=== PATIENT | female | born 1965 | race Caucasian/White ===

== ENCOUNTER 2024-06-21 21:58 | Emergency (ER) | payer SELFPAY ==
--- NOTE | 2024-06-21 22:02 | ED.GENADUL_ITS ---
Discharge Plan Disposition Patient Disposition: [facility] Condition: Stable Discharge Details Clinical Impression: Encounter for medical clearance for patient hold, Alcohol intoxication ED Provider: Manolo Valencia Discharge Instructions Additional Instructions: You were seen in the emergency department for clearance after being taken into protective custody by state police. You will be released from protective custody once you are sober. Follow-up with primary care as needed. Return to ED with any concerns. HPI General Mode of arrival: ambulatory . Date/Time Provider Initiated Documentation: 06/21/24 22:02 . Limitations to Documentation: no limitations . Information obtained by: patient, police and RN notes reviewed . HPI Narrative: Patient is brought to ED by state police for medical clearance after being taken into protective custody. Patient has no physical complaints at this time. She is awake and alert and cooperative. Denies any injury, fever, cough, chest pain, abdominal pain. Takes gabapentin and PPI as daily medications. Related Data Allergies Allergy/AdvReac Type Severity Reaction Status Date / Time Penicillins Allergy Unknown Contraindic Verified 06/21/24 22:15 ated Exam Narrative Exam Narrative: Const: WDWN female in NAD. VS per triage. HEENT: NC/AT. Normal facial exam. Neck: Supple. Trachea midline. Lungs: Normal respiratory effort. Lungs are clear. Cor: RRR without murmur. Good radial pulses. Neuro: A+O x 3. Normal speech. Cranial nerves II - XII grossly intact. No gross motor or sensory deficit. Medical Decision Making Patient has been taken into protective custody by [employer] police. She is brought to the ED for clearance. She has no physical complaints. Police had offered to call family for her, she apparently declined. She has no acute emergent condition and is cleared to be brought to detox until sober at which time she will be discharged from protective custody. [facility] All Active Problems Alcohol intoxication (Acute) Encounter for medical clearance for patient hold (Acute) Medical History GERD (gastroesophageal reflux disease) Surgical History S/P shoulder surgery bilateral Status post THR (total hip replacement) Social History Smoking/Tobacco Use Status: Current every day Tobacco Type: cigarettes Smoking risk assessment performed?: Yes Alcohol Intake: current Alcohol Intake frequency: 3 or more drinks per day Alcohol type: hard liquor Housing: apartment Do you feel safe at home: Yes Do you feel safe in your relationship?: Yes
[2024-06-21 22:08] VITALS: BP 154/90; PULSE 76; RESP 18; TEMP 36.2; O2SAT 100
[2024-06-21 22:11] VITALS: RESP 16
== END 2024-06-21 22:18 ==
LOC: ER 22:25
PROVIDERS: Emergency Provider Emergency Medicine
DX: F10.920 Alcohol use, unspecified with intoxication, uncomplicated (principal)